=== PATIENT | female | born 1980 | race Caucasian/White ===

== ENCOUNTER 2020-01-21 22:59 | Emergency (ER) | payer BC ==
[~2020-01-21] VITALS: Ht 162.6 cm; Wt 71.4 kg
--- NOTE | 2020-01-21 23:14 | NUR ---
UA SENT TO LAB
[2020-01-21 23:26] LABS: HCG UR SG 1.024 (1.003-1.030); MICROSCOPIC AUTO
[2020-01-21 23:53] LABS: BASOPHILS # (AUTO) 0.02 x10^3/uL (0-0.1); BASOPHILS % (AUTO) 0 % (0-1); EOSINOPHILS # (AUTO) 0.24 x10^3/uL (0-0.4); EOSINOPHILS % (AUTO) 4 % (1-7); LYMPHOCYTES # (AUTO) 2.01 x10^3/uL (1-3.4); LYMPHOCYTES % (AUTO) 30 % (22-44); MD NO; MEAN CORPUSCULAR HEMOGLOBIN 29.9 pg (27.0-34.8); MEAN CORPUSCULAR HGB CONC 32.6 g/dL (32.4-35.8); MEAN CORPUSCULAR VOLUME 91.8 fL (80-100); MEAN PLATELET VOLUME 8.3 fL (7.4-10.4); MONOCYTES # (AUTO) 0.42 x10^3/uL (0.2-0.8); MONOCYTES % (AUTO) 6 % (2-9); NEUTROPHILS # (AUTO) 4.09 x10^3/uL (1.8-6.8); NEUTROPHILS % (AUTO) 60 % (42-75); PLATELET COUNT 275 x10^3/uL (130-400); RED BLOOD COUNT 4.13 x10^6/uL (3.82-5.3); RED CELL DISTRIBUTION WIDTH 13.2 % (9.6-15.2)
--- NOTE | 2020-01-21 23:58 | NUR ---
PT CAME IN WITH C/O ABDOMINAL CRAMPING THAT STARTED ABOUT 2 HOURS AGO. PT STATES 6/10 PAIN. PT STATES SIMILAR PAIN ABOUT A WEEK AGO BUT IT WENT AWAY AND WAS NOT INTENSE. PT RESTING COMFORTABLY IN GURNEY, LABS DRAWN, AND WAS TAKEN TO ULTRASOUND.
[2020-01-22] LABS: ALBUMIN 3.8 g/dL (3.4-5.0); ANION GAP 8 mmol/L (5-15); CALCIUM 8.7 mg/dL (8.5-10.1); CHLORIDE 106 mmol/L (98-107); CREATININE 0.86 mg/dL (0.55-1.02)
[2020-01-22 01:06] VITALS: BP 102/54
== END 2020-01-22 01:14 | disposition home or self-care (01) ==
LOC: ED 01-22 01:00
DX: O20.0 Threatened abortion (principal); R10.32 Left lower quadrant pain; O20.9 Hemorrhage in early pregnancy, unspecified; Z3A.08 8 weeks gestation of pregnancy
CPT/HCPCS: 36415; 76856; 80048; 81001; 81025; 82040; 84702; 85025; 86901; 87086; 99284